=== PATIENT | female | born 2005 | race Caucasian/White ===

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

== ENCOUNTER 2024-11-10 19:59 | Emergency (ER) | payer OTHER, SELFPAY ==
[~2024-11-10] VITALS: Ht 162.6 cm; Wt 117.0 kg
[~2024-11-10 19:59] MED LIST changes: +LAMO-18; -LAMO25TA4; -ZIPR40CA11 PO; +ZIPR40CA21 PO
[2024-11-10 20:05] VITALS: BP 163/78; TEMP 97.5; O2SAT 100
[2024-11-10] MEDS ORDERED: ZOLO100T (20:20)
[2024-11-10] MEDS: IBUPROFEN 600 MG TAB PO ONE (21:44)
== END 2024-11-10 21:57 | disposition home or self-care (01) ==
LOC: M ED 19:59
DX: S93.402A Sprain of unspecified ligament of left ankle, initial encounter (principal); Y92.9 Unspecified place or not applicable; Y93.9 Activity, unspecified; Y99.9 Unspecified external cause status; W01.0XXA Fall on same level from slipping, tripping and stumbling without subsequent striking against object, initial encounter; Z91.041 Radiographic dye allergy status; Z79.899 Other long term (current) drug therapy